=== PATIENT | male | born 1960 | race Caucasian/White ===

== ENCOUNTER 2024-07-27 20:40 | Emergency (ER) | payer OTHER, SELFPAY ==
[2024-07-27 20:49] VITALS: BP 153/100
[2024-07-27] MEDS: TYLENOL 1000 MG PO (20:59)
--- NOTE | 2024-07-27 21:15 | ED.GENMED ---
ED Provider Triage
<Tico Jay PA-C - Last Filed: 07/27/24 21:17>
-
Patient seen by provider in Triage?: Seen in Triage
Attestation: A medical screening examination has been initiated by a qualified medical provider. Based on the assessment performed at this time, it has been determined that an emergent medical condition may exist and the patient has been informed
that further medical evaluation and possible additional diagnostic testing may be needed.
HPI: 1 day of flulike symptoms, fevers, chills, body aches, cough and congestion. Today left-sided otalgia and temporal headache. Headache described to be waxing waning sharp pain, no visual changes, no jaw pain, no focal weakness or numbness.
Patient febrile here. No erythema to the tympanic membrane, bulging or effusions. No direct tenderness over the temporal artery. Possible trigeminal neuralgia. COVID and flu testing ordered. Motrin and Tylenol ordered for pain.
GENERAL: Alert , in no apparent distress
EYE: No visual abnormalities.
NECK: Trachea midline
ENT: No visible abnormalities.
LUNGS: No acute respiratory distress
NEUROLOGICAL: Alert and oriented
SKIN: Skin intact. No visible changes.
MUSCULOSKELETAL: Moving extremities normally
PSYCH: Normal and appropriate interaction.
This is a medical evaluation conducted in person to initiate diagnostic evaluation and provide initial therapeutics. Please see further documentation by the treating clinician.
History of Present Illness
<Tico Jay PA-C - Last Filed: 07/27/24 21:17>
General
Chief Complaint: Cold/Flu/URI Symptoms
Time Seen by Provider: 07/28/24 01:06
<Sheri Barron DO - Last Filed: 07/28/24 06:50>
General
Source: patient
Exam Limitations: none
Nursing documentation reviewed up to this point in time: agreed with
History of Present Illness
History of Present Illness:
This is a 64-year-old gentleman who has history of GERD, hypertension who presents with 24-hour history of cough, mild rhinorrhea, generalized aches, headache. Grandkids have had similar URI symptoms over the past week.
Symptoms worsened tonight with onset of primarily left-sided headache, left ear ache and noted to have elevated temperature of 101.2 �F.
No accompanying weakness nor numbness, no neck pain. No shortness of breath.
No recent travel.
Feeling markedly improved after a dose of Tylenol and ibuprofen. Headache and ear discomfort have resolved.
Past History
<Tico Jay PA-C - Last Filed: 07/27/24 21:17>
Past History
ED Past Medical History: HTN and Hypercholesterolemia
ED Past Surgical History: Tonsilectomy and Other
Social History
Tobacco: Non-smoker
Alcohol: Occasional
Employment: Employed
Family History
Family History: Negative Diabetes, Hypertension, Early CAD or CAD
<Sheri Barron DO - Last Filed: 07/28/24 06:50>
Past History
ED Past Medical History: GERD
Social History
Personal:
Living: with family
Phy Exam
<Sheri Barron DO - Last Filed: 07/28/24 06:50>
Physical Exam
Physical Exam:
GENERAL: 64-year-old gentleman appears his stated age, bright and alert, pleasant, appears in no acute distress.
EYE: pupils equal and reactive. anicteric
NECK: Supple, nontender, no meningismus, no significant adenopathy.
ENT: posterior pharynx is clear, oral mucosa is moist. TM clear b/l, nares have mildly boggy turbinates with scant clear rhinorrhea.
CARDIAC: Regular rate and rhythm. no murmur.
LUNGS: Clear breath sounds bilaterally, no acute respiratory distress, no wheezes/rales/rhonchi
ABDOMEN: Soft, nondistended, without focal tenderness, normoactive BS.
NEUROLOGICAL: Alert and oriented x3, no focal neuro deficits. Gait is steady.
SKIN: Warm and dry, normal color, skin intact. No rash.
MUSCULOSKELETAL: No C/C/E. peripheral pulses are full and equal b/l. No palpable tenderness.
PSYCH: Normal and appropriate interaction.
Course
<Tico Jay PA-C - Last Filed: 07/27/24 21:17>
Orders/Labs/Results
Orders:
Orders
07/27/24 20:58
Acetaminophen [Tylenol] 1,000 mg .ROUTE .STK-MED ONE
07/27/24 20:59
Acetaminophen [Tylenol] 1,000 mg PO NOW STA
07/27/24 21:01
COVID-19 Antigen Urgent
Source: Nasal Swab
Influenza A+B Rapid Molecular Urgent
TAYLA Source: Nasal Swab
Specimen Description:
07/27/24 21:16
Ibuprofen [Motrin] 600 mg .ROUTE .STK-MED ONE
07/27/24 21:17
Ibuprofen [Motrin] 600 mg PO NOW STA
07/28/24 00:27
Influenza A+B Rapid Molecular Urgent
TAYLA Source: Nasal Swab
Specimen Description:
07/28/24 01:16
Oseltamivir Phosphate [Tamiflu] 75 mg PO NOW STA
07/28/24 01:17
Ibuprofen [Motrin] 600 mg PO NOW STA
Vital Signs
Initial and Last Documented VS:
Initial Vital Signs
Temp Pulse Resp BP Pulse Ox
101.2 F H 110 20 153/100 98
07/27/24 20:49 07/27/24 20:49 07/27/24 20:49 07/27/24 20:49 07/27/24 20:49
Last Documented Vital Signs
Temp Pulse Resp BP Pulse Ox
98.1 F 61 19 108/72 96
07/28/24 00:55 07/28/24 01:15 07/28/24 01:15 07/28/24 01:00 07/28/24 01:15
<Sheri Barron DO - Last Filed: 07/28/24 06:50>
Orders/Labs/Results
Orders:
Orders
07/27/24 20:58
Acetaminophen [Tylenol] 1,000 mg .ROUTE .STK-MED ONE
07/27/24 20:59
Acetaminophen [Tylenol] 1,000 mg PO NOW STA
07/27/24 21:01
COVID-19 Antigen Urgent
Source: Nasal Swab
Influenza A+B Rapid Molecular Urgent
TAYLA Source: Nasal Swab
Specimen Description:
07/27/24 21:16
Ibuprofen [Motrin] 600 mg .ROUTE .STK-MED ONE
07/27/24 21:17
Ibuprofen [Motrin] 600 mg PO NOW STA
07/28/24 00:27
Influenza A+B Rapid Molecular Urgent
TAYLA Source: Nasal Swab
Specimen Description:
07/28/24 01:16
Oseltamivir Phosphate [Tamiflu] 75 mg PO NOW STA
07/28/24 01:17
Ibuprofen [Motrin] 600 mg PO NOW STA
Vital Signs
Initial and Last Documented VS:
Initial Vital Signs
Temp Pulse Resp BP Pulse Ox
101.2 F H 110 20 153/100 98
07/27/24 20:49 07/27/24 20:49 07/27/24 20:49 07/27/24 20:49 07/27/24 20:49
Last Documented Vital Signs
Temp Pulse Resp BP Pulse Ox
98.1 F 61 19 108/72 96
07/28/24 00:55 07/28/24 01:15 07/28/24 01:15 07/28/24 01:00 07/28/24 01:15
<DO Raji Vieira Last Filed: 07/28/24 06:50>
MDM/Problems Addressed
Differential Diagnosis Includes:
Patient presents with 24-hour history of cough, fever, aches with onset of moderate primarily left-sided headache this evening, left ear discomfort.
Headache, ear discomfort, aches and chills have all promptly resolved after a dose of Tylenol and ibuprofen. Currently feeling well.
Patient is positive for influenza A. COVID testing is negative.
Overall well in appearance, no meningismus. No palpable scalp tenderness and reassuring that pain has resolved along with prompt resolution of fever after antipyretics.
He reports no contact with chickens nor raw milk thus bird flu is unlikely.
Has not had influenza vaccine this season but has no history of immunocompromise nor significant risk factors for such.
Recommend initiation of Tamiflu and will add ibuprofen 600 mg to be taken with food every 6 hours as needed for fever, aches.
He does have history of GERD, hiatal hernia but generally well-controlled.
We did discuss that ibuprofen may exacerbate his GERD/gastritis and if so to promptly discontinue and otherwise continue Tylenol as needed for fever, pain.
Discussed importance of staying well-hydrated on a daily basis.
Avoid contact with others until fever free.
Follow-up with PCP.
Return precautions discussed.
Chronic conditions affecting care: HTN and Other (GERD/hiatal hernia)
<Sheri Barron DO - Last Filed: 07/28/24 06:50>
*Pulse Oximetry
Patient hypoxic: no
*Critical Care Note
Total Time (30-74mins, 75-104mins- exclusive of procedures): Not Applicable
ED Attending Note
<Tico Jay PA-C - Last Filed: 07/27/24 21:17>
-
Portions of this chart may have been created with voice recognition software.� Occasional wrong word or��sound alike� substitutions may have occurred due to the inherent limitations of voice recognition software.
Discharge Plan
Departure
Patient Disposition: Home (Routine Discharge)
Date of Disposition: 07/28/24
Time of Disposition: 01:17
Patient with high blood pressure during this ER visit?: No
Condition: Good
Discharge Problem:
Influenza A
Instructions: Fever, Adult (DC), Flu in adults - ED discharge instructions
Prescriptions:
New
oseltamivir [Tamiflu] 75 mg capsule
75 mg PO BID Qty: 10 0RF
ibuprofen 600 mg tablet
600 mg PO QID PRN (Reason: fever or pain) Qty: 30 0RF
No Action
metoprolol tartrate 50 MG tablet
50 mg PO DAILY
felodipine 10 MG tablet extended release 24 hr
50 mg PO DAILY
allopurinol 300 MG tablet
300 mg PO DAILY
valsartan-hydrochlorothiazide 1 EACH tablet
1 tab PO DAILY
rfzihbizuadr-ioli-gsqdv acid [Centrum] 1 EACH tablet
1 tab PO DAILY
Referrals:
Brett Terrazas MD [Family Provider] - As needed
Interventions
Interventions:
*Risk Screen - Suicide Last Done: 07/27/24 20:49
*General Assessment Last Done: 07/28/24 00:49
*Neglect/Abuse Screening Last Done: 07/27/24 20:49
ED- Fall Risk Assessment Last Done: 07/28/24 00:49
*ED COVID-19 Vaccine History Last Done: 07/28/24 00:49
*Nursing Disposition Last Done: 07/28/24 01:33
ED- Pulmonary Assessment Last Done: 07/28/24 00:57
Discharge Date and Time
Discharge Date/Time: 07/28/24 01:33
Print Language: MONTSERRATIAN
[2024-07-27] MEDS: MOTRIN 600 MG PO (21:17)
[2024-07-27 21:26] LABS: COVID-19 Antigen Negative (Negative)
[2024-07-28 00:49] VITALS: BMI 27.9
[2024-07-28 00:55] VITALS: BP 99/65
[2024-07-28 01:00] VITALS: BP 108/72
[2024-07-28] MEDS: MOTRIN 600 MG PO (01:22)
[2024-07-28] MEDS: TAMIFLU 75 MG PO (01:23)
== END 2024-07-28 01:33 | disposition home or self-care (01) ==
LOC: EMR 20:40
PROVIDERS: Emergency Medicine; EMERGENCY PHYSICIAN Emergency Medicine; FAMILY PHYSICIAN Internal Medicine
DX: J10.1 Influenza due to other identified influenza virus with other respiratory manifestations (principal); Z11.52 Encounter for screening for COVID-19; I10 Essential (primary) hypertension; K21.9 Gastro-esophageal reflux disease without esophagitis
CPT/HCPCS: 99283; 87502; 87811

== ENCOUNTER 2024-09-03 19:33 | Emergency (ER) | payer OTHER, SELFPAY ==
[2024-09-03 19:34] VITALS: BP 164/101
[2024-09-03 20:00] VITALS: BP 137/74
--- NOTE | 2024-09-03 20:31 | ED.GENMED ---
History of Present Illness
General
Chief Complaint: Musculo-Skeletal Complaint
Source: patient
Time Seen by Provider: 09/03/24 19:57
History of Present Illness
History of Present Illness:
64-year-old male presenting to the ER for evaluation of pain to the dorsal aspect of his left foot along the distal metatarsals that started this past Thursday, patient states initially the pain was on the dorsal aspect of the second toe at the IP
joint and then pain seemed to move proximally towards the distal metatarsals. Patient notes some overlying erythema and mild edema which is what prompted him to come to the ER today. Patient stating he was concerned for possible DVT due to a
recent 14-hour road trip. Patient states he does have a history of gout and that gout usually only affected him on the first metatarsal and he has not had a flare in a while due to dietary modification as well as approximate 20 pound weight loss.
Patient denies any trauma to the affected area. No history of diabetes. No other concerns presently.
Past History
Past History
ED Past Medical History: GERD, HTN and Hypercholesterolemia
ED Past Surgical History: Tonsilectomy and Other
Social History
Tobacco: Non-smoker
Alcohol: Occasional
Drug: None
Personal:
Living: with family
Employment: Employed
Family History
Family History: Negative Diabetes, Hypertension, Early CAD or CAD
Review of Systems
Review of Systems
All Other Systems: ROS reviewed and negative except as documented in HPI and ROS
Phy Exam
Physical Exam
Physical Exam:
GENERAL: Alert , in no apparent distress
EYE: conjunctiva clear
Head: Normocephalic atraumatic
NECK: Supple,
ENT: mmm.
LUNGS: no acute respiratory distress
NEUROLOGICAL: Alert and oriented
SKIN: Warm and dry, skin intact. Dorsum of left foot across the second metatarsal extending towards the fifth metatarsal is erythematous, warm to the touch, tender and slightly edematous. No breaks in skin
MUSCULOSKELETAL: well perfused. Easily palpable pedal and tibial pulses. No calf tenderness or edema
PSYCH: Normal and appropriate interaction.
Scores
Heart Failure Risk
Heart Failure Risk Score: Not Applicable
Heart Score for Chest Pain Patients
STEMI patient?: Not applicable
Withdrawal Assessment of Alcohol
Withdrawal Assessment Completed?: Not applicable
Course
Orders/Labs/Results
Orders:
Orders
09/03/24 20:11
CR Foot - Right Min 3 Views Urgent
Comment:
Reason For Exam: pain, edema at distal metatarsals
US Periph Venous LOWER Ext RT Urgent
Comment:
Reason For Exam: pain, recent travel
09/03/24 21:08
Cephalexin Monohydrate [Keflex] 500 mg PO NOW STA
Vital Signs
Initial and Last Documented VS:
Initial Vital Signs
Pulse Resp BP Pulse Ox
84 18 164/101 97
09/03/24 19:34 09/03/24 19:34 09/03/24 19:34 09/03/24 19:34
Last Documented Vital Signs
Temp Pulse Resp BP Pulse Ox
98.1 F 76 16 137/74 99
09/03/24 19:37 09/03/24 20:00 09/03/24 20:00 09/03/24 20:00 09/03/24 20:00
MDM/Problems Addressed
Differential Diagnosis Includes:
Cellulitis, less concern for gout, less concern for fracture, given location I have minimal concern for DVT
MDM/Problems Addressed:
64-year-old male presenting to the ER for evaluation of nontraumatic left foot erythema and edema that started a couple of days ago, recently returned home from a long road trip. Patient's main concern is for DVT however given location I am less
concerned for this as a diagnosis but will check ultrasound to rule out. Will obtain x-ray to rule out fracture or potential foreign body. I do suspect cellulitis to be the most likely diagnosis and will plan to treat with p.o. Keflex.
*Radiology
Radiology exam reviewed: preliminary read by ED provider
*Pulse Oximetry
Patient hypoxic: no
*Critical Care Note
Total Time (30-74mins, 75-104mins- exclusive of procedures): Not Applicable
Patient Management
Escalation/DeEscalation of care consider admission/obs:
Patient's ultrasound shows no evidence for DVT. X-ray does not show any acute abnormalities. Will discharge home with prescription for Keflex. Will also prescribe colchicine as patient states he did well with this with gout. He will attempt the
antibiotics initially and if not improving will then try the colchicine. Aware of return precautions to the ER. Stable for discharge home.
ED Attending Note
-
Portions of this chart may have been created with voice recognition software.� Occasional wrong word or��sound alike� substitutions may have occurred due to the inherent limitations of voice recognition software.
Discharge Plan
Departure
Patient Disposition: Home (Routine Discharge)
Date of Disposition: 09/03/24
Time of Disposition: 21:09
Patient with high blood pressure during this ER visit?: Yes
Discharge Problem:
Cellulitis of foot, right
Instructions: Cellulitis (skin infection) in adults - Discharge instructions
Prescriptions:
New
cephalexin 500 mg tablet
500 mg PO BID Qty: 19 0RF
colchicine 0.6 mg capsule
0.6 mg PO DAILY Qty: 20 0RF
Rx Instructions:
Take 2 tabs day 1, 1 tab remaining days
No Action
metoprolol tartrate 50 MG tablet
50 mg PO DAILY
felodipine 10 MG tablet extended release 24 hr
50 mg PO DAILY
allopurinol 300 MG tablet
300 mg PO DAILY
valsartan-hydrochlorothiazide 1 EACH tablet
1 tab PO DAILY
owcnwviecchk-gmjr-ybhdy acid [Centrum] 1 EACH tablet
1 tab PO DAILY
oseltamivir [Tamiflu] 75 mg capsule
75 mg PO BID Qty: 10 0RF
ibuprofen 600 mg tablet
600 mg PO QID PRN (Reason: fever or pain) Qty: 30 0RF
Referrals:
Brett Terrazas MD [Family Provider] -
Interventions
Interventions:
*Risk Screen - Suicide Last Done: 09/03/24 19:36
*General Assessment Last Done: 09/03/24 19:37
*Neglect/Abuse Screening Last Done: 09/03/24 19:36
*ED- Fall Risk Assessment Last Done: 09/03/24 19:37
*ED COVID-19 Vaccine History Last Done: 09/03/24 19:37
*Nursing Disposition Last Done: 09/03/24 21:20
ED-Musculoskeletal Assessment Last Done: 09/03/24 20:00
Discharge Date and Time
Discharge Date/Time: 09/03/24 21:20
Print Language: [place]ET[place]ESE
[2024-09-03] MEDS: KEFLEX 500 MG PO (21:18)
== END 2024-09-03 21:20 | disposition home or self-care (01) ==
LOC: EMR 19:33
PROVIDERS: EMERGENCY PHYSICIAN Emergency Medicine; FAMILY PHYSICIAN Internal Medicine
DX: L03.115 Cellulitis of right lower limb (principal); K21.9 Gastro-esophageal reflux disease without esophagitis; I10 Essential (primary) hypertension; E78.00 Pure hypercholesterolemia, unspecified; Z82.49 Family history of ischemic heart disease and other diseases of the circulatory system
CPT/HCPCS: 99284; 73630; 93971

== ENCOUNTER 2024-09-07 06:22 | Day surgery (SDC) | payer OTHER, SELFPAY | END 2024-09-07 14:54 | disposition home or self-care (01) | LOC: GI 06:22 | PROVIDERS: ATTENDING PHYSICIAN Internal Medicine Gastroenterology; FAMILY PHYSICIAN Internal Medicine | DX: Z12.11 Encounter for screening for malignant neoplasm of colon (principal); K64.8 Other hemorrhoids; K57.30 Diverticulosis of large intestine without perforation or abscess without bleeding; D12.2 Benign neoplasm of ascending colon; K63.5 Polyp of colon; K63.89 Other specified diseases of intestine; Z86.0100 Personal history of colon polyps, unspecified | CPT/HCPCS: 45380; 88305 ==